=== PATIENT | male | born 1980 | race Caucasian/White ===

== ENCOUNTER 2021-12-21 17:21 | Emergency (ER) | payer OTHER ==
[2021-12-21 17:31] VITALS: BP 128/85; PULSE 91; RESP 18; TEMP 98.4; BMI 39.1
[2021-12-21] MEDS ORDERED: DIPHTH,PERTUSS(ACELL),TET 0.5 ML DISP.SYRIN IM ONE ×2 (18:53→18:54)
== END 2021-12-21 19:22 | disposition home or self-care (01) ==
LOC: JERFT 17:21 → JER 17:21 → JERFT 19:22
PROC: 3E0234Z Introduction of Serum, Toxoid and Vaccine into Muscle, Percutaneous Approach (ICD-10-PCS; principal; 2021-12-21)
DX: S01.81XA Laceration without foreign body of other part of head, initial encounter (principal); S01.412A Laceration without foreign body of left cheek and temporomandibular area, initial encounter; W50.0XXA Accidental hit or strike by another person, initial encounter; Y93.66 Activity, soccer
CPT/HCPCS: 70486-TC; 90471; 90715; 99284-25

== ENCOUNTER 2021-12-30 18:16 | Emergency (ER) | payer SELFPAY ==
[2021-12-30 18:50] VITALS: BP 123/77; PULSE 68; RESP 18; TEMP 97.8; BMI 33.1
== END 2021-12-30 20:05 ==
LOC: JERFT 18:16
DX: Z48.02 Encounter for removal of sutures (principal)
CPT/HCPCS: 99281-25